=== PATIENT | female | born 1975 | race Caucasian/White ===

== ENCOUNTER 2020-11-16 19:25 | Inpatient (IN) | payer OTHER ==
[~2020-11-16] VITALS: Ht 162.6 cm; Wt 72.9 kg
[2020-11-16 19:40] VITALS: BP 130/73
[2020-11-16 20:41] LABS: BILIRUBIN,URINE NEGATIVE (NEG); CLARITY,URINE CLEAR; COLOR,URINE AMBER; NITRITE,URINE NEGATIVE (NEG); PH,URINE 5.5 (<5.0-8.0); PROTEIN,URINE 30 mg/dL (NEG-TRACE); UROBILINOGEN,URINE 0.2 mg/dL (0.2 mg/dL)
[2020-11-16 20:49] LABS: BARBITURATES NEG (NEG); BENZODIAZEPINES NEG (NEG); CANNABINOIDS NEG (NEG); COCAINE NEG (NEG); METHADONE NEG (NEG); OPIATES NEG (NEG); PHENCYCLIDINE NEG (NEG)
[2020-11-16 20:50] LABS: AMPHETAMINE/METHAMPHETAMINE NEG (NEG)
[2020-11-16 20:52] LABS: BACTERIA,URINE MODERATE /HPF (0-FEW); RBC,URINE 0 /HPF (0-2); WBC,URINE 0 /HPF (0-4)
[2020-11-16 20:58] LABS: BASO # 0.1 x10^3/uL (0.0-0.2); BASO % 0 % (0-3); EOS % 0 % (0-3); HEMATOCRIT 40.4 % (36.0-47.0); HEMOGLOBIN 13.8 g/dL (12.0-15.5); LYMPH # 0.6 x10^3/uL (1.0-4.8); LYMPH % 4 % (24-48); MEAN CORPUSCULAR HEMOGLOBIN 32 pg (25-35); MEAN CORPUSCULAR HGB CONC 34 g/dL (31-37); MEAN CORPUSCULAR VOLUME 93 fL (79-100); MONO # 1.1 x10^3/uL (0.0-1.1); MONO % 6 % (0-9); NEUT % 90 % (31-73); PLATELET COUNT 73 x10^3/uL (140-400); RED BLOOD COUNT 4.33 x10^6/uL (3.50-5.40); RED CELL DISTRIBUTION WIDTH 13.5 % (11.5-14.5); WHITE BLOOD COUNT 17.8 x10^3/uL (4.0-11.0)
[2020-11-16] MEDS: IV RINGERS,LACTATED 1000ML 1,000 ML IV SCH ×2 (21:13→22:54)
[2020-11-16] MEDS ORDERED: PANTOPRAZOLE 40 MG TABLET.DR. PO ONE (21:30)
--- NOTE | 2020-11-16 21:42 | PDOC1 ---
[facility] H&P Date of Admission: Date of Admission: Nov 16, 2020 at 19:25 History of Present Illness: EDC: 11/17/20 LMP: 01/14/20 45y @ 39.6 by 8wk u/s who presented to L&D with ctxs and fever. The pt called early in the afternoon reporting a fever. The pt called back after 6 pm reporting that the fever had persisted. The pt was advised to come in for eval. On arrival the pt was afebrile. Covid testing and UA returned neg. The pt also reported that she was ctxing frequently. She states that all other times she has ctxed like this she has been in labor. She feels that something is not right. The pts initial SVE was 1-2 cm dilation. When I returned to recheck the pt around 9 pm she reported that she was having chest pain. It was mostly located on her right. She did not feel comfortable lying down. She states that it feels like reflux but worse. A pulse ox was placed on the pt revealing tachycardia. She was sating above 98%. The pt went to the bathroom. When she returned to bed she was asked if we could perform a recheck. She declined. PMH: Seasonal allergies PSH: section x1 Meds: Chary , Singulair All: penicillin: rash, Bactrim: rash OBHx: TSVD x 4, TC/S x 1, SAB x 2 SH: no tob, no EtOH FH: hypertension. Rubio's. Heart Disease. Medications: Meds: Current Medications Medications (Trade) Dose Ordered Sig/Radha Route PRN Reason Start Time Stop Time Status Last Admin Dose Admin Ringer's Solution 1,000 ml @ 125 mls/hr Q8H IV 11/16/20 20:30 UNV 11/16/20 21:13 Physical Exam: PE: GENERAL: No apparent distress. Alert and oriented. HEENT: Head normocephalic, atraumatic. NECK: Supple LUNGS: Clear to auscultation. HEART: RRR, S1, S2 present, pulses intact ABDOMEN: Soft, positive bowel sounds. EXTREMITIES: No cyanosis or edema. NEUROLOGIC: Normal speech, normal tone PSYCHIATRIC: Normal affect, normal mood. SKIN: No ulceration. FHT: 150's no acels/no decels/mLTV [place]: 2-5 min SVE: 1-2/40/-3 Labs: Laboratory Tests Test 11/16/20 19:50 11/16/20 20:15 11/16/20 20:40 SARS-CoV-2 Antigen (Rapid) Negative (NEGATIVE) Urine Collection Type Unknown Urine Color Keily Urine Clarity Clear Urine pH 5.5 (<5.0-8.0) Urine Specific [place] 1.020 (1.000-1.030) Urine Protein 30 mg/dL (NEG-TRACE) Urine Glucose (UA) Negative mg/dL (NEG) Urine Ketones (Stick) >=80 mg/dL (NEG) Urine Blood Negative (NEG) Urine Nitrite Negative (NEG) Urine Bilirubin Negative (NEG) Urine Urobilinogen Dipstick 0.2 mg/dL (0.2 mg/dL) Urine Leukocyte Esterase Negative (NEG) Urine RBC 0 /HPF (0-2) Urine WBC 0 /HPF (0-4) Urine Squamous Epithelial Cells Mod /LPF Urine Bacteria Moderate /HPF (0-FEW) Urine Mucus Marked /LPF Urine Opiates Screen Neg (NEG) Urine Methadone Screen Neg (NEG) Urine Barbiturates Neg (NEG) Urine Phencyclidine Screen Neg (NEG) Urine Amphetamine/Methamphetamine Neg (NEG) Urine Benzodiazepines Screen Neg (NEG) Urine Cocaine Screen Neg (NEG) Urine Cannabinoids Screen Neg (NEG) Urine Ethyl Alcohol Neg (NEG) White Blood Count 17.8 x10^3/uL (4.0-11.0) H Red Blood Count 4.33 x10^6/uL (3.50-5.40) Hemoglobin 13.8 g/dL (12.0-15.5) Hematocrit 40.4 % (36.0-47.0) Mean Corpuscular Volume 93 fL (79-100) Mean Corpuscular Hemoglobin 32 pg (25-35) Mean Corpuscular Hemoglobin Concent 34 g/dL (31-37) Red Cell Distribution Width 13.5 % (11.5-14.5) Platelet Count 73 x10^3/uL (140-400) L Neutrophils (%) (Auto) 90 % (31-73) H Lymphocytes (%) (Auto) 4 % (24-48) L Monocytes (%) (Auto) 6 % (0-9) Eosinophils (%) (Auto) 0 % (0-3) Basophils (%) (Auto) 0 % (0-3) Neutrophils # (Auto) 16.0 x10^3/uL (1.8-7.7) H Lymphocytes # (Auto) 0.6 x10^3/uL (1.0-4.8) L Monocytes # (Auto) 1.1 x10^3/uL (0.0-1.1) Eosinophils # (Auto) 0.0 x10^3/uL (0.0-0.7) Basophils # (Auto) 0.1 x10^3/uL (0.0-0.2) Platelet Estimate Pending Laboratory Tests 11/16/20 20:40 Laboratory Tests 11/16/20 20:40 Assessment & Plan: A/P 45y @ 39.6 by 8wk u/s 1.) Fever AF since arrival, WBC 17, UA neg, rapid Covid neg, tachycardic 2.) Contractions 1-2 cm on arrival, declines recheck, unclear if in labor 3.) Elevated BP in the office BP nml on L&D 4.) AMA - s/p nml level II at OPR, declines indxn 5.) Polyhydramnios - resolved. 6.) H/o child with Trisomy 18 - as above 7.) Prev C/S x 1 - desires TOLAC 8.) Asthma - on Singular 9.) Fibroid - lower uterine segment, 3.4 x 3.5 cm 10.) GBSuria will start Clinda when in labor, if spikes fever will start Clinda and Gent 11.) PCN All 12.) Bactrim All 13.) TDAP given 09/27/20 14.) Will cont observation BENTON PENN MD Nov 16, 2020 21:42
[2020-11-16] MEDS ORDERED: ACETAMINOPHEN 325 MG TABLET. PO PRN (23:15)
[2020-11-17] MEDS ORDERED: 0.9 % SODIUM CHLORIDE 10 ML DISP.SYRIN. IV PRN ×2 (02:00→19:00)
[2020-11-17] MEDS ORDERED: TERBUTALINE 1 MG/ML VIAL. SQ PRN (02:00)
[2020-11-17] MEDS ORDERED: OXYTOCIN 30 UNIT/500 ML PREMIX 500 ML IV PRN ×3 (02:00→19:00)
[2020-11-17] MEDS ORDERED: ACETAMINOPHEN 325 MG TABLET. PO PRN ×2 (02:00→19:00)
[2020-11-17] MEDS ORDERED: BUTORPHANOL 2 MG/ML VIAL. IVP PRN ×2 (02:00)
[2020-11-17] MEDS ORDERED: LIDOCAINE 1% PF 30 ML VIAL. INJ PRN (02:00)
[2020-11-17 02:40] LABS: % BANDS 7 % (0-9); % LYMPHS 2 % (24-48); % MONOS 2 % (0-10); % SEGS 89 % (35-66); PLT ESTIMATE DECREASED (ADEQUATE)
[2020-11-17] MEDS ORDERED: OXYTOCIN 10 UNIT/ML VIAL. ONE ×2 (02:46→16:43)
--- NOTE | 2020-11-17 03:38 | PDOC ---
[employer] PRODUCER PROGRESS NOTE Date of Service: DATE: 11/17/20 TIME: 03:38 Subjective: Pt with continued cxts. Chest pain has resolved. Objective: Labs: Laboratory Tests Test 11/16/20 19:50 11/16/20 20:15 11/16/20 20:40 SARS-CoV-2 Antigen (Rapid) Negative (NEGATIVE) Urine Collection Type Unknown Urine Color Keily Urine Clarity Clear Urine pH 5.5 (<5.0-8.0) Urine Specific [place] 1.020 (1.000-1.030) Urine Protein 30 mg/dL (NEG-TRACE) Urine Glucose (UA) Negative mg/dL (NEG) Urine Ketones (Stick) >=80 mg/dL (NEG) Urine Blood Negative (NEG) Urine Nitrite Negative (NEG) Urine Bilirubin Negative (NEG) Urine Urobilinogen Dipstick 0.2 mg/dL (0.2 mg/dL) Urine Leukocyte Esterase Negative (NEG) Urine RBC 0 /HPF (0-2) Urine WBC 0 /HPF (0-4) Urine Squamous Epithelial Cells Mod /LPF Urine Bacteria Moderate /HPF (0-FEW) Urine Mucus Marked /LPF Urine Opiates Screen Neg (NEG) Urine Methadone Screen Neg (NEG) Urine Barbiturates Neg (NEG) Urine Phencyclidine Screen Neg (NEG) Urine Amphetamine/Methamphetamine Neg (NEG) Urine Benzodiazepines Screen Neg (NEG) Urine Cocaine Screen Neg (NEG) Urine Cannabinoids Screen Neg (NEG) Urine Ethyl Alcohol Neg (NEG) White Blood Count 17.8 x10^3/uL (4.0-11.0) H Red Blood Count 4.33 x10^6/uL (3.50-5.40) Hemoglobin 13.8 g/dL (12.0-15.5) Hematocrit 40.4 % (36.0-47.0) Mean Corpuscular Volume 93 fL (79-100) Mean Corpuscular Hemoglobin 32 pg (25-35) Mean Corpuscular Hemoglobin Concent 34 g/dL (31-37) Red Cell Distribution Width 13.5 % (11.5-14.5) Platelet Count 73 x10^3/uL (140-400) L Neutrophils (%) (Auto) 90 % (31-73) H Lymphocytes (%) (Auto) 4 % (24-48) L Monocytes (%) (Auto) 6 % (0-9) Eosinophils (%) (Auto) 0 % (0-3) Basophils (%) (Auto) 0 % (0-3) Neutrophils # (Auto) 16.0 x10^3/uL (1.8-7.7) H Lymphocytes # (Auto) 0.6 x10^3/uL (1.0-4.8) L Monocytes # (Auto) 1.1 x10^3/uL (0.0-1.1) Eosinophils # (Auto) 0.0 x10^3/uL (0.0-0.7) Basophils # (Auto) 0.1 x10^3/uL (0.0-0.2) Segmented Neutrophils % 89 % (35-66) H Band Neutrophils % 7 % (0-9) Lymphocytes % 2 % (24-48) L Monocytes % 2 % (0-10) Platelet Estimate Decreased (ADEQUATE) Giant Platelets Occ Laboratory Tests 11/16/20 20:40 Laboratory Tests 11/16/20 20:40 Physical Exam: GENERAL: No apparent distress. Alert and oriented. HEENT: Head normocephalic, atraumatic. NECK: Supple LUNGS: Clear to auscultation. HEART: RRR, S1, S2 present, pulses intact ABDOMEN: Soft, positive bowel sounds. EXTREMITIES: No cyanosis or edema. NEUROLOGIC: Normal speech, normal tone PSYCHIATRIC: Normal affect, normal mood. SKIN: No ulceration. FHT: 130s +acels/no decels/mLTV [place]: 5-6 min SVE: 1-2/50/-3 Assessment & Plan: A/P 45y @ 40.0 by 8wk u/s 1.) Fever AF since arrival, WBC 17, UA neg, rapid Covid neg, tachycardia has improved 2.) SROM cervical exam unchanged since admission, pt would like to give it more time for active labor 3.) Elevated BP in the office BPs nml on L&D 4.) AMA - s/p nml level II at OPR, declines indxn 5.) Polyhydramnios - resolved. 6.) H/o child with Trisomy 18 - as above 7.) Prev C/S x 1 - desires TOLAC 8.) Asthma - on Singular 9.) Fibroid - lower uterine segment, 3.4 x 3.5 cm 10.) Fetus cat I FHT 11.) GBSuria will start Clinda since ROM 12.) PCN All 13.) Bactrim All 14.) TDAP given 09/27/20 BENTON PENN MD Nov 17, 2020 03:38
[2020-11-17] MEDS: CLINDAMYCIN 900MG PREMIX 50 ML IV SCH ×2 (03:45→12:04)
--- NOTE | 2020-11-17 08:33 | PDOC ---
NICU RN PROGRESS NOTE Date of Service: DATE: 11/17/20 TIME: 08:32 Subjective: Came by to see the patient in the am. Discussed performing cervical exam to see where pt is. The pt declines b/c she was just checked by the nurse. The nurse cervical exam is a hand gesture. When asked what dilation that is, she states that 2-3 cm. Objective: Vital Signs: Vital Signs Date Time Temp Pulse Resp B/P (MAP) Pulse Ox O2 Delivery O2 Flow Rate FiO2 11/16/20 19:40 99.8 110 18 130/73 (92) VS transcribed from OB assessment adm sheet 99.8 Vital Signs Date Time Temp Pulse Resp B/P (MAP) Pulse Ox O2 Delivery O2 Flow Rate FiO2 11/16/20 19:40 99.8 110 18 130/73 (92) VS transcribed from OB assessment adm sheet 99.8 Labs: Laboratory Tests Test 11/16/20 19:50 11/16/20 20:15 11/16/20 20:40 SARS-CoV-2 Antigen (Rapid) Negative (NEGATIVE) Urine Collection Type Unknown Urine Color Keily Urine Clarity Clear Urine pH 5.5 (<5.0-8.0) Urine Specific [place] 1.020 (1.000-1.030) Urine Protein 30 mg/dL (NEG-TRACE) Urine Glucose (UA) Negative mg/dL (NEG) Urine Ketones (Stick) >=80 mg/dL (NEG) Urine Blood Negative (NEG) Urine Nitrite Negative (NEG) Urine Bilirubin Negative (NEG) Urine Urobilinogen Dipstick 0.2 mg/dL (0.2 mg/dL) Urine Leukocyte Esterase Negative (NEG) Urine RBC 0 /HPF (0-2) Urine WBC 0 /HPF (0-4) Urine Squamous Epithelial Cells Mod /LPF Urine Bacteria Moderate /HPF (0-FEW) Urine Mucus Marked /LPF Urine Opiates Screen Neg (NEG) Urine Methadone Screen Neg (NEG) Urine Barbiturates Neg (NEG) Urine Phencyclidine Screen Neg (NEG) Urine Amphetamine/Methamphetamine Neg (NEG) Urine Benzodiazepines Screen Neg (NEG) Urine Cocaine Screen Neg (NEG) Urine Cannabinoids Screen Neg (NEG) Urine Ethyl Alcohol Neg (NEG) White Blood Count 17.8 x10^3/uL (4.0-11.0) H Red Blood Count 4.33 x10^6/uL (3.50-5.40) Hemoglobin 13.8 g/dL (12.0-15.5) Hematocrit 40.4 % (36.0-47.0) Mean Corpuscular Volume 93 fL (79-100) Mean Corpuscular Hemoglobin 32 pg (25-35) Mean Corpuscular Hemoglobin Concent 34 g/dL (31-37) Red Cell Distribution Width 13.5 % (11.5-14.5) Platelet Count 73 x10^3/uL (140-400) L Neutrophils (%) (Auto) 90 % (31-73) H Lymphocytes (%) (Auto) 4 % (24-48) L Monocytes (%) (Auto) 6 % (0-9) Eosinophils (%) (Auto) 0 % (0-3) Basophils (%) (Auto) 0 % (0-3) Neutrophils # (Auto) 16.0 x10^3/uL (1.8-7.7) H Lymphocytes # (Auto) 0.6 x10^3/uL (1.0-4.8) L Monocytes # (Auto) 1.1 x10^3/uL (0.0-1.1) Eosinophils # (Auto) 0.0 x10^3/uL (0.0-0.7) Basophils # (Auto) 0.1 x10^3/uL (0.0-0.2) Segmented Neutrophils % 89 % (35-66) H Band Neutrophils % 7 % (0-9) Lymphocytes % 2 % (24-48) L Monocytes % 2 % (0-10) Platelet Estimate Decreased (ADEQUATE) Giant Platelets Occ Laboratory Tests 11/16/20 20:40 Laboratory Tests 11/16/20 20:40 Physical Exam: GENERAL: No apparent distress. Alert and oriented. HEENT: Head normocephalic, atraumatic. NECK: Supple LUNGS: Clear to auscultation. HEART: RRR, S1, S2 present, pulses intact ABDOMEN: Soft, positive bowel sounds. EXTREMITIES: No cyanosis or edema. NEUROLOGIC: Normal speech, normal tone PSYCHIATRIC: Normal affect, normal mood. SKIN: No ulceration. FHT: 140s +acels/no decels/min-modLTV [place]: 8-10 min SVE: 2-3/50/-3 Assessment & Plan: A/P 45y @ 40.0 by 8wk u/s 1.) Fever AF since arrival, WBC 17, UA neg, rapid Covid neg, tachycardia has improved 2.) SROM cervical exam with minimal change (different examiner), Nurse reports baby to ballotable even though ruptured. Pt declines exam by provider so that we can make a plan. May start Pit at some point. 3.) Elevated BP in the office BPs nml on L&D 4.) AMA - s/p nml level II at OPR, declines indxn 5.) Polyhydramnios - resolved. 6.) H/o child with Trisomy 18 - as above 7.) Prev C/S x 1 - desires TOLAC 8.) Asthma - on Singular 9.) Fibroid - lower uterine segment, 3.4 x 3.5 cm 10.) Fetus cat I FHT 11.) GBSuria will start Clinda since ROM 12.) PCN All 13.) Bactrim All 14.) TDAP given 09/27/20 BENTON PENN MD Nov 17, 2020 08:33
[2020-11-17] MEDS: IV RINGERS,LACTATED 1000ML 1,000 ML IV SCH ×2 (09:26→14:47)
[2020-11-17] MEDS ORDERED: L&D EPIDURAL SYRINGE 50 ML ONE ×2 (11:49→15:56)
[2020-11-17] MEDS ORDERED: ROPIVacaine 0.2% PF 10 ML VIAL. ONE ×2 (11:49→12:00)
[2020-11-17] MEDS ORDERED: L&D EPIDURAL 50 ML SYRINGE. ONE (12:00)
[2020-11-17] MEDS ORDERED: IV RINGERS,LACTATED 1000ML 1,000 ML IV SCH (12:45)
[2020-11-17] MEDS ORDERED: NALOXONE 0.4 MG/ML VIAL. IV PRN (12:45)
[2020-11-17] MEDS ORDERED: ROPIVacaine 0.2% PF 10 ML VIAL. EPID PRN (12:45)
[2020-11-17] MEDS ORDERED: ePHEDrine PF IN SALINE 50 MG/10 ML SYRINGE. IV PRN (12:45)
[2020-11-17] MEDS ORDERED: PHENYLEPHRINE in 0.9% NACL PF 1 MG/10 ML SYRINGE. IV ONE (16:42)
[2020-11-17] MEDS ORDERED: ePHEDrine PF IN SALINE 50 MG/10 ML SYRINGE. IV ONE (16:42)
[2020-11-17] MEDS ORDERED: FAMOTIDINE 20 MG/2 ML VIAL ONE (16:44)
[2020-11-17] MEDS ORDERED: ONDANSETRON PF 4 MG/2 ML VIAL. ONE (16:44)
[2020-11-17] MEDS ORDERED: MORPHINE PF 10 MG/10 ML AMPUL. ONE (16:45)
[2020-11-17] MEDS ORDERED: CITRIC ACID/SODIUM CITRATE 30 ML SOLUTION. PO ONE (16:45)
[2020-11-17] MEDS ORDERED: LIDOCAINE 2% PF 5 ML VIAL. ONE (16:46)
[2020-11-17] MEDS ORDERED: GENTAMICIN SULFATE 270 MG in IV NORMAL SALINE 100ML 100 ML IV SCH (17:00)
[2020-11-17] MEDS ORDERED: PROPOFOL 10 MG/ML (20ML) VIAL. IV ONE (18:18)
--- NOTE | 2020-11-17 18:27 | PDOC4 ---
OPERATIVE NOTE: PreOp Dx: 1.) IUP @ 40.0 by 8wk u/s, 2.) Prev C/S x 1 - desires TOLAC, 3.) intol of labor, 4.) Fever, 5.) SROM, 6.) Elevated BP, 7.) AMA , 8.) Polyhydramnios resolved, 9.) H/o child with Trisomy 18, 10.) Asthma, 11.) Fibroid, 12.) GBSuria, 13.) PCN All, 14.) Bactrim All PostOp Dx: same Procedure: RLTCS Surgeons: Artemio Penn Anesthesia: Spinal EBL: 700 cc Fluids: 1000 cc UOP: 325 cc Findings: viable female delivered at 1726. Wt 6lb 14oz. Apgars 9/9. Nml maternal anatomy. Complication: None Path: Cord blood, cord ABG, placenta BENTON PENN MD Nov 17, 2020 18:27
[2020-11-17] MEDS ORDERED: diphenhydrAMINE ORAL ELIXIR 12.5 MG/5 ML ML PO PRN (19:00)
[2020-11-17] MEDS ORDERED: MMR per PROTOCOL. MC PRN (19:00)
[2020-11-17] MEDS ORDERED: TDaP (Adacel) per PROTOCOL. MC PRN (19:00)
[2020-11-17] MEDS ORDERED: KETOROLAC 30 MG/ML VIAL. IVP PRN (19:00)
[2020-11-17] MEDS ORDERED: DOCUSATE SODIUM 100 MG CAPSULE. PO PRN (19:00)
[2020-11-17] MEDS ORDERED: BENZOCAINE 20% TOPICAL AEROSOL SPRAY 57GM CAN. TP PRN (19:00)
[2020-11-17 20:45] VITALS: BP 111/61
--- NOTE | 2020-11-17 21:15 | OP ---
DATE OF SURGERY: 11/17/2020 PREOPERATIVE DIAGNOSES: 1. Intrauterine at 40 weeks and 0 days by 8-week ultrasound. 2. Previous x 1, desires trial of labor. 3. intolerance of labor. 4. Fever. 5. Spontaneous rupture of membranes. 6. Elevated blood pressure. 7. Advanced maternal age. 8. Polyhydramnios, resolved. 9. History of child with trisomy 18. 10. Asthma. 11. Fibroid. 12. Urine culture positive for GBS. 13. PENICILLIN ALLERGY. 14. BACTRIM ALLERGY. POSTOPERATIVE DIAGNOSES: 1. Intrauterine at 40 weeks and 0 days by 8-week ultrasound. 2. Previous x 1, desires trial of labor. 3. intolerance of labor. 4. Fever. 5. Spontaneous rupture of membranes. 6. Elevated blood pressure. 7. Advanced maternal age. 8. Polyhydramnios, resolved. 9. History of child with trisomy 18. 10. Asthma. 11. Fibroid. 12. Urine culture positive for GBS. 13. PENICILLIN ALLERGY. 14. BACTRIM ALLERGY. PROCEDURE: Repeat lower transverse . SURGEON: Porfirio Da Silva MD ANESTHESIA: Epidural. ESTIMATED BLOOD LOSS: 700 mL. FLUIDS: 1000 mL. URINE OUTPUT: 325 mL. FINDINGS: Viable female delivered at 1726, weighing 6 pounds 14 ounces with Apgars of 9 and 9. Normal maternal anatomy noted. COMPLICATIONS: None. PATHOLOGY: Cord blood, cord ABG and placenta. INDICATIONS: The patient is a 45-year-old 8, para 5-0-2-5 who presented to labor and delivery at 39 weeks and 6 days by 8-week ultrasound with contractions and fever. The patient had developed fever earlier in the afternoon and was advised to come back in for evaluation. By the time the patient had arrived, her fever had broken, but she was having regular contractions. COVID testing and UA returned negative. The patient had a CBC which returned back with an elevated white count of 17. The patient remained 1-2 cm on presentation. When the patient was to be rechecked around 9:00 p.m., the patient was reporting chest pain located mostly in her back. It was thought to be mostly related to reflux. She was satting well, but she was noted to have some tachycardia. The patient ultimately went to the bathroom and was asked if she could be rechecked, but declined. On initial presentation, the baby had minimal to moderate variability, but improved over time. The patient was watched overnight to see if she went into labor. She did have rupture of membranes around 3:00 a.m. She was continued to be monitored, but did not labor, so by the following morning, Pitocin was initiated. While the Pitocin was increased, the baby began to have several decelerations with these contractions. The Pitocin had to be decreased. The patient ultimately was unchanged. Later that afternoon around 4:00, the patient was rechecked with minimal change. Discussion was held with the patient and ultimately decided on repeat lower transverse . DESCRIPTION OF PROCEDURE: The patient was taken to the operating room where an epidural was rebolused without difficulty. The patient was prepped and draped in normal sterile fashion with a left lateral tilt. A Pfannenstiel skin incision was made through her previous incision, carried down to the underlying layer of fascia. Fascia was then nicked in the midline. The fascial incision was then extended laterally with Johnson scissors. The superior aspect of the fascial incision was then grasped with Yolanda clamps, elevated and the underlying rectus muscle was dissected off with the scalpel. Attention was then turned to the inferior aspect of the fascial incision, which was grasped with Yolanda clamps, elevated, and underlying rectus muscle was dissected off with Johnson scissors. At that point, the midline of the rectus muscle was identified and entered sharply with Metzenbaum scissors. Digital examination of the peritoneal cavity revealed no adhesions. At that point, the peritoneal incision was then extended superiorly and inferiorly with good visualization of the bladder with traction and countertraction. Sami ring was then placed into the abdomen to better visualize the lower uterine segment. The lower uterine segment was then incised in transverse fashion with a scalpel. The head was then flexed and brought to the hysterotomy. The baby appeared to be in OP position. The rest of was delivered atraumatically. The nose and mouth were bulb suctioned. The cord was double clamped and cut. Infant was handed over to the waiting boarder machine. The placenta was then removed manually and the uterus was then cleared of all clots and debris. The uterus was then repaired with #1 chromic in a running locked fashion. A second layer of the same suture was used to imbricate. At that point, the gutters were copiously irrigated and cleared of all clots and debris. There appeared to be some bleeding along the hysterotomy, so 3-0 chromic was used in a running locked fashion to achieve hemostasis. At that point, the Sami ring was then removed. The peritoneal incision was then reapproximated with 2-0 Vicryl in a running fashion. The muscle was reapproximated with 2-0 Vicryl in a running fashion. The fascia was then closed with 0 Vicryl in a running fashion. The skin was closed with 3-0 Monocryl in subcuticular manner. The patient tolerated the procedure well. The patient was given clindamycin throughout her labor course and gentamicin was added prior to the procedure. The patient was taken to the recovery room in stable condition. MONICA/MANPREET DR: Obi TID: [id number]
[2020-11-17] MEDS ORDERED: ONDANSETRON PF 4 MG/2 ML VIAL. IVP PRN (22:00)
[2020-11-17] MEDS: oxyCODONE/APAP 5/325 1 TAB TABLET PO PRN (23:00)
[2020-11-17 23:29] VITALS: BP 118/68
[2020-11-18 05:33] VITALS: BP 109/65
[2020-11-18 08:45] LABS: HEMATOCRIT 31.4 % (36.0-47.0); HEMOGLOBIN 10.5 g/dL (12.0-15.5); RED BLOOD COUNT 3.35 x10^6/uL (3.50-5.40); RED CELL DISTRIBUTION WIDTH 13.7 % (11.5-14.5); WHITE BLOOD COUNT 7.6 x10^3/uL (4.0-11.0)
[2020-11-18 10:30] VITALS: BP 108/63
[2020-11-18] MEDS: oxyCODONE/APAP 5/325 1 TAB TABLET PO PRN ×2 (11:47→17:10)
--- NOTE | 2020-11-18 13:22 | PDOC ---
COLLECTIONS AGENT PROGRESS NOTE Date of Service: DATE: 11/18/20 TIME: 13:22 Subjective: Pt with good pain control. Natalie PO. Voiding. Minimal lochia Objective: Vital Signs: Vital Signs Date Time Temp Pulse Resp B/P (MAP) Pulse Ox O2 Delivery O2 Flow Rate FiO2 11/17/20 20:45 98.2 75 16 111/61 (78) Room Air 98.2 11/17/20 23:29 97 Vital Signs Date Time Temp Pulse Resp B/P (MAP) Pulse Ox O2 Delivery O2 Flow Rate FiO2 11/18/20 11:47 20 11/18/20 10:30 99.2 88 108/63 (78) 98 99.2 11/18/20 05:33 Room Air Labs: Laboratory Tests Test 11/18/20 08:15 White Blood Count 7.6 x10^3/uL (4.0-11.0) Red Blood Count 3.35 x10^6/uL (3.50-5.40) L Hemoglobin 10.5 g/dL (12.0-15.5) L Hematocrit 31.4 % (36.0-47.0) L Mean Corpuscular Volume 94 fL (79-100) Mean Corpuscular Hemoglobin 32 pg (25-35) Mean Corpuscular Hemoglobin Concent 34 g/dL (31-37) Red Cell Distribution Width 13.7 % (11.5-14.5) Platelet Count 120 x10^3/uL (140-400) L Laboratory Tests 11/18/20 08:15 Laboratory Tests 11/18/20 08:15 Physical Exam: GENERAL: No apparent distress. Alert and oriented. HEENT: Head normocephalic, atraumatic. NECK: Supple LUNGS: Clear to auscultation. HEART: RRR, S1, S2 present, pulses intact ABDOMEN: Soft, positive bowel sounds. EXTREMITIES: No cyanosis or edema. NEUROLOGIC: Normal speech, normal tone PSYCHIATRIC: Normal affect, normal mood. SKIN: No ulceration. FFNT below umb No C/C/E Inc: dressing dry Assessment & Plan: A/P 45y POD #1 s/p RLTCS ( intol of labor) 1.) PO doing well 2.) Fever AF since arrival, WBC 17.8 (on admission) -> 7.6, UA neg, rapid Covid neg 3.) Elevated BP in the office BPs nml on L&D 4.) Asthma - on Singular 5.) Hgb 13.8 -> 10.5 6.) PCN All 7.) Bactrim All 8.) TDAP given 09/27/20 9.) Cont PO care BENTON PENN MD Nov 18, 2020 13:22
[2020-11-18 14:40] VITALS: BP 94/51
[2020-11-18] MEDS: FERROUS SULFATE 325 MG TABLET. PO SCH (18:29)
[2020-11-18 18:30] VITALS: BP 105/61
[2020-11-18] MEDS: MULTIVITAMIN with MINERAL TABLET. PO SCH (18:30)
[2020-11-18 20:30] VITALS: BP 111/55
[2020-11-19] MEDS: oxyCODONE/APAP 5/325 1 TAB TABLET PO PRN ×3 (01:43→14:46)
[2020-11-19] MEDS: IBUPROFEN 400 MG TABLET. PO PRN ×3 (01:43→19:52)
[2020-11-19 05:34] VITALS: BP 118/70
[2020-11-19] MEDS: FERROUS SULFATE 325 MG TABLET. PO SCH ×3 (08:00→17:00)
[2020-11-19] MEDS: PRENATAL MULTIVITAMIN TABLET. PO SCH ×2 (09:00→20:23)
[2020-11-19 09:15] VITALS: BP 131/77
[2020-11-19] MEDS: MULTIVITAMIN with MINERAL TABLET. PO SCH (09:19)
--- NOTE | 2020-11-19 09:36 | PDOC ---
ENGLISH LANGUAGE LEARNER TUTOR PROGRESS NOTE Date of Service: DATE: 11/19/20 TIME: 09:35 Subjective: Pt with good pain control. Natalie PO. Voiding. Minimal lochia. Objective: Vital Signs: Vital Signs Date Time Temp Pulse Resp B/P (MAP) Pulse Ox O2 Delivery O2 Flow Rate FiO2 11/18/20 10:30 99.2 88 20 108/63 (78) 98 99.2 11/18/20 20:30 Room Air Vital Signs Date Time Temp Pulse Resp B/P (MAP) Pulse Ox O2 Delivery O2 Flow Rate FiO2 11/19/20 09:20 20 11/19/20 05:34 97.7 74 118/70 (86) 97 Room Air 97.7 Physical Exam: GENERAL: No apparent distress. Alert and oriented. HEENT: Head normocephalic, atraumatic. NECK: Supple LUNGS: Clear to auscultation. HEART: RRR, S1, S2 present, pulses intact ABDOMEN: Soft, positive bowel sounds. EXTREMITIES: No cyanosis or edema. NEUROLOGIC: Normal speech, normal tone PSYCHIATRIC: Normal affect, normal mood. SKIN: No ulceration. FFNT below umb No C/C/E Inc: C/D/I Assessment & Plan: A/P 45y POD #2 s/p RLTCS ( intol of labor) 1.) PO doing well 2.) Fever AF since arrival, WBC 17.8 (on admission) -> 7.6, UA neg, rapid Covid neg 3.) Elevated BP in the office BPs nml throughout hospital course 4.) Asthma - on Singular 5.) Hgb 13.8 -> 10.5 6.) PCN All 7.) Bactrim All 8.) TDAP given 09/27/20 9.) Cont PO care (12/27/20 at 1:45 pm) BENTON PENN MD Nov 19, 2020 09:36
[2020-11-19 14:45] VITALS: BP 119/75
[2020-11-19 20:12] VITALS: BP 130/79
--- NOTE | 2020-11-19 22:14 | NUR ---
Pt informed of babies 13 % drop in weight and advised to supplement the baby with a bottle after her next breast feed. Pt states understanding although didn't seem very interested in giving her baby a bottle.
[2020-11-20 00:40] VITALS: BP 144/77
[2020-11-20 04:07] VITALS: BP 138/85
[2020-11-20] MEDS: IBUPROFEN 400 MG TABLET. PO PRN ×2 (04:07→13:51)
[2020-11-20] MEDS: MULTIVITAMIN with MINERAL TABLET. PO SCH (08:09)
[2020-11-20] MEDS: PRENATAL MULTIVITAMIN TABLET. PO SCH (08:09)
[2020-11-20] MEDS: oxyCODONE/APAP 5/325 1 TAB TABLET PO PRN ×3 (09:28→22:51)
[2020-11-20 09:40] VITALS: BP 132/71
--- NOTE | 2020-11-20 11:09 | PDOC ---
EXCHANGE FLOOR MANAGER PROGRESS NOTE Date of Service: DATE: 11/20/20 TIME: 11:09 Subjective: Pt with good pain control. Natalie PO. Voiding. Minimal lochia Objective: Vital Signs: Vital Signs Date Time Temp Pulse Resp B/P (MAP) Pulse Ox O2 Delivery O2 Flow Rate FiO2 11/19/20 09:15 97.7 69 20 131/77 (95) 97.7 11/19/20 20:12 99 Room Air Vital Signs Date Time Temp Pulse Resp B/P (MAP) Pulse Ox O2 Delivery O2 Flow Rate FiO2 11/20/20 09:58 16 Room Air 11/20/20 09:40 97.9 68 132/71 (91) 98 97.9 Physical Exam: GENERAL: No apparent distress. Alert and oriented. HEENT: Head normocephalic, atraumatic. NECK: Supple LUNGS: Clear to auscultation. HEART: RRR, S1, S2 present, pulses intact ABDOMEN: Soft, positive bowel sounds. EXTREMITIES: No cyanosis or edema. NEUROLOGIC: Normal speech, normal tone PSYCHIATRIC: Normal affect, normal mood. SKIN: No ulceration. FFNT below umb No C/C/E Inc: C/D/I Assessment & Plan: A/P 45y POD #3 s/p RLTCS ( intol of labor) 1.) PO doing well 2.) Fever AF since arrival, WBC 17.8 (on admission) -> 7.6, UA neg, rapid Covid neg 3.) Elevated BP in the office BPs nml throughout hospital course 4.) Asthma - on Singular 5.) Hgb 13.8 -> 10.5 6.) PCN All 7.) Bactrim All 8.) TDAP given 09/27/20 9.) D/c home BENTON PENN MD Nov 20, 2020 11:09
[2020-11-20] MEDS ORDERED: OXYC1TAB15 PO ×4 (11:11→15:31)
--- NOTE | 2020-11-20 13:30 | DS ---
DATE OF DISCHARGE: 11/20/2020 ADMISSION DIAGNOSES: 1. Intrauterine at 39 weeks and 6 days by 8-week ultrasound. 2. Fever. 3. Contractions. 4. Elevated blood pressure. 5. Advanced maternal age. 6. Polyhydramnios, resolved. 7. History of a child with trisomy 18. 8. Previous x1, desires trial of labor. 9. Asthma. 10. Fibroids. 11. Urine culture positive for GBS. 12. PENICILLIN ALLERGY. 13. BACTRIM ALLERGY. 14. Status post Tdap. DISCHARGE DIAGNOSES:. 1. Intrauterine at 39 weeks and 6 days by 8-week ultrasound. 2. Fever. 3. Contractions. 4. Elevated blood pressure. 5. Advanced maternal age. 6. Polyhydramnios, resolved. 7. History of a child with trisomy 18. 8. Previous x1, desires trial of labor. 9. Asthma. 10. Fibroids. 11. Urine culture positive for GBS. 12. PENICILLIN ALLERGY. 13. BACTRIM ALLERGY. 14. Status post Tdap. 15. intolerance of labor. PROCEDURE: Repeat low transverse . BRIEF HOSPITAL COURSE: The patient is a 45-year-old 8, para 5-0-2-5 who presented to Labor and Delivery at 39 weeks and 6 days by 8-week ultrasound with contractions and fever. The patient had developed a fever earlier that afternoon and was advised to come in for evaluation. By the time the patient reached the hospital, her fever had broken, but she was having regular contractions. A COVID screening and UA were performed, both returned negative. CBC obtained on the patient revealed her to have a white count elevated at 17. The patient's cervix was examined and found to be 1-2 cm, similar to that of what it was in the office. After an hour's time, the patient was to be rechecked, but the patient declined at that time, mostly due to having chest pain. From the location and how she describes the pain it sounded consistent with reflux. A pulse ox was placed on the patient where she was satting well, but was noted to have tachycardia. Eventually, the patient's symptoms resolved with Pepcid and on recheck, she was found to be unchanged. The patient was watched overnight to see if she if she progressed. The patient did have rupture of membranes around 3 a.m., but remained unchanged. A discussion was held with the patient regarding augmentation the following morning. Pitocin was started. During the course of her Pitocin, the baby had variable decels with each contractions. Once it was increased to 12 due to the intolerance to labor, the Pitocin had to be decreased. When the patient was rechecked later that afternoon, she had made minimal change. Discussion was held with the patient regarding a repeat due to the intolerance to labor, and minimal progression since admission. The patient ultimately decided that there was a reasonable choice. The patient underwent said procedure. See operative note for full detail. By day #3, the patient was meeting all discharge criteria and was subsequently discharged home as a boarder status. Of note, the patient remained afebrile throughout the course of her hospitalization. Her white count did decrease to 7.6 following delivery. The patient had some elevated blood pressures in the office, but throughout her hospital course here was all negative. The patient's hemoglobin on admission was 13.8 and after delivery, was found to be 10.5. DISCHARGE INSTRUCTIONS: The patient was told not to lift anything greater than 20 pounds, have pelvic rest for [address] on narcotics. CALL IF: The patient was to call if she had fevers, chills, nausea, vomiting, abdominal pain, or any additional questions or concerns. FOLLOWUP APPOINTMENT: The patient was to follow up on 12/27/2020 at 1:45 p.m. for a visit. DISCHARGE MEDICATIONS: The patient was given a prescription for Percocet 5, fifteen pills, Motrin 800 mg 30 pills and Colace 100 mg [address]: Obi TID: [id number] MTDD
[2020-11-20 13:45] VITALS: BP 125/76
[2020-11-20 17:40] VITALS: BP 144/74
[2020-11-20 22:44] VITALS: BP 139/83
== END 2020-11-20 23:15 | disposition still patient (30) | DRG 788 ==
LOC: 3 SO LND 19:25 → OBSVTOIN 19:25
PROVIDERS: ADMIT Obstetrics & Gynecology; ATTEND Obstetrics & Gynecology
PROC: 10D00Z1 Extraction of Products of Conception, Low, Open Approach (ICD-10-PCS; principal; 2020-11-17)
DX: O34.211 Maternal care for low transverse scar from previous cesarean delivery (principal); O40.3XX0 Polyhydramnios, third trimester, not applicable or unspecified; O99.52 Diseases of the respiratory system complicating childbirth; O16.4 Unspecified maternal hypertension, complicating childbirth; O34.13 Maternal care for benign tumor of corpus uteri, third trimester; Z20.822 Contact with and (suspected) exposure to COVID-19; J45.909 Unspecified asthma, uncomplicated; D25.9 Leiomyoma of uterus, unspecified; Z37.0 Single live birth; Z3A.40 40 weeks gestation of pregnancy; Z88.0 Allergy status to penicillin; Z88.1 Allergy status to other antibiotic agents; Z82.49 Family history of ischemic heart disease and other diseases of the circulatory system
CPT/HCPCS: 36415; 36600; 80307; 81001; 85007; 85025; 85027; 86592; 86850; 86900; 86901; 87077; 87086; 87426; J1885; J2274; J2370; J2405; J2590; J2704; J2795; J3010; J3490; J7120; U0003; U0005; G0378